=== PATIENT | male | born 1950 | race Caucasian/White ===

== ENCOUNTER 2016-12-15 00:29 | Emergency (ER) | payer SELFPAY ==
[~2016-12-15] VITALS: Ht 177.8 cm; Wt 100.0 kg
[2016-12-15 00:30] VITALS: BP 152/95; PULSE 97; RESP 18; TEMP 97.8; O2SAT 96
[2016-12-15 00:51] VITALS: BP 156/84; PULSE 91; RESP 18; TEMP 98.4; O2SAT 100
[2016-12-15 00:55] VITALS: O2SAT 97
[2016-12-15] MEDS ORDERED: MIRTA15 PO (01:04)
[2016-12-15] MEDS ORDERED: HYDR50TA94 PO (01:04)
[2016-12-15] MEDS ORDERED: SERO400T PO (01:04)
--- NOTE | 2016-12-15 01:11 | RADRPT ---
EXAM DATE/TIME: 12/15/2016 00:53 [facility] COMPARISON: No previous studies available for comparison. INDICATIONS : Chest pain. MEDICAL HISTORY : None. SURGICAL HISTORY : None. ENCOUNTER: Initial ACUITY: 1 day PAIN SCORE: 1/10 LOCATION: Bilateral chest FINDINGS: The lungs are clear without infiltrate, nodule, or mass. There is no appreciable pleural effusion fo r technique. Heart and mediastinum are unremarkable. CONCLUSION: No acute cardiopulmonary disease. Roberto Hsu MD on December 15, 2016 at 1:09 Board Certified Radiologist. This report was verified electronically.
--- NOTE | 2016-12-15 01:35 | PD ---
HPI Chief Complaint: Chest Pain Time Seen by Provider: 01:08 Travel History International Travel<30 days: No Contact w/Intl Traveler<30days: No Traveled to known affect area: No History of Present Illness HPI 66-year-old male presents with couple hour history of chest pain and shortness of breath that feels like an anxiety attack. He states that he feels better at rest and denies other concurrent complaints. He states that he is still having pain but it is better. Quality is pressure. Severity is improving. He states he had a stress test maybe 10 years ago. He states he took an aspirin prior to arrival. 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 PFSH Past Medical History Anxiety: Yes Psychiatric: Yes (PTSD) Tetanus Vaccination: < 5 Years Influenza Vaccination: No Past Surgical History Surgical History: No Previous Surgery Social History Alcohol Use: No (OCC) Tobacco Use: Yes Substance Use: No Allergies-Medications (Allergen,Severity, Reaction): Coded Allergies: No Known Allergies (Unverified , 12/15/16) Reported Meds & Prescriptions Reported Meds & Active Scripts Active Reported Mirtazapine 15 Mg Tab 15 Mg PO HS Hydroxyzine HCl 50 Mg Tab 50 Mg PO BID PRN Seroquel (Quetiapine Fumarate) 400 Mg Tab 600 Mg PO HS Review of Systems Except as stated in HPI: all other systems reviewed are Neg Physical Exam Narrative GENERAL: Well-nourished, well-developed patient. SKIN: Warm and dry. HEAD: Normocephalic and atraumatic. EYES: No injection or drainage. ENT: No nasal drainage noted. NECK: Supple, trachea midline. CARDIOVASCULAR: Regular rate and rhythm RESPIRATORY: Breath sounds equal bilaterally. No accessory muscle use. GASTROINTESTINAL: Abdomen soft, non-tender, nondistended. EXTREMITIES: No edema. NEUROLOGICAL: Awake and alert. Motor and sensory grossly within normal limits. Normal speech. Data Data Last Documented VS Vital Signs Date Time Temp Pulse Resp B/P Pulse Ox O2 Delivery O2 Flow Rate FiO2 12/15/16 00:55 91 18 100 Room Air 12/15/16 00:51 98.4 156/84 Orders Electrocardiogram (12/15/16 00:49) Complete Blood Count With Diff (12/15/16 00:49) Basic Metabolic Panel (Bmp) (12/15/16 00:49) Ckmb (Isoenzyme) Profile (12/15/16 00:49) Troponin I (12/15/16 00:49) Chest, Single Ap (12/15/16 00:49) Iv Access Insert/Monitor (12/15/16 00:49) Ecg Monitoring (12/15/16 00:49) Oxygen Administration (12/15/16 00:49) Oximetry (12/15/16 00:49) MDM Medical Decision Making Medical Screen Exam Complete: Yes Emergency Medical Condition: Yes Medical Record Reviewed: Yes (past history confirmed) Interpretation(s) EKG shows NSR, no ST elevation or depression, and no arrhythmias. No significant T-wave inversions. Last 24 hours Impressions Chest X-Ray 12/15/16 0049 Signed Impressions: Service Date/Time: Thursday, December 15, 2016 00:53 - CONCLUSION: No acute cardiopulmonary disease. Roberto Hsu MD Differential Diagnosis Anxiety, gastritis, musculoskeletal, cardiac Narrative Course Protocol was ordered prior to evaluating patient but only chest x-ray and EKG available. These show no acute findings. Advised patient that we will follow blood work and he will need observation in the hospital for cardiac clearance. He states he can't wait for the blood work that was sent to results and he wants to leave now. Nurse at bedside. 112- AMA: The risks of leaving against medical advice without further evaluation treatment were discussed with the patient. These risks include cardiac dysfunction, cardiac dysrhythmia, possible heart attack, possible stroke or . The patient indicated understanding of these risks and appeared to have the capacity to make this decision. Diagnosis Primary Impression: Chest pain Qualified Code: R07.9 - Chest pain, unspecified type Additional Impression: Left against medical advice Patient Instructions: General Instructions Departure Forms: Tests/Procedures Disposition: 07 AGAINST MEDICAL ADVICE Condition: Stable Lili Larsen MD December 15, 2016 01:35
--- NOTE | 2016-12-15 13:01 | EKG ---
Date Performed: 12/15/2016 Time Performed: 00:47:20 PTAGE: 66 years EKG: Sinus rhythm NORMAL ECG NO PREVIOUS TRACING DOCTOR: Sohail Adhikari Interpretating Date/Time 12/15/2016 13:00:11
== END 2016-12-15 01:26 | disposition left against medical advice (07) ==
LOC: NEPC 00:29
DX: R07.9 Chest pain, unspecified (principal); R06.02 Shortness of breath; Z72.0 Tobacco use; Z86.59 Personal history of other mental and behavioral disorders; Z53.29 Procedure and treatment not carried out because of patient's decision for other reasons
CPT/HCPCS: 71010; 93005; 99285

== ENCOUNTER 2017-01-14 13:35 | Emergency (ER) | payer MEDICARE ==
[~2017-01-14 13:35] MED LIST: HYDR50TA94 PO; MIRTA15 PO; SERO400T PO
[2017-01-14 13:37] VITALS: BP 136/86; PULSE 107; RESP 14; TEMP 97.8; O2SAT 96
--- NOTE | 2017-01-14 13:53 | PD ---
Physical Exam Date Seen by Provider: Jan 14, 2017 Time Seen by Provider: 13:50 Data Data Last Documented VS Vital Signs Date Time Temp Pulse Resp B/P Pulse Ox O2 Delivery O2 Flow Rate FiO2 01/14/17 13:37 97.8 107 14 136/86 96 MDM Supervised Visit with VIOLETTA: No Narrative Course 66 YO M with complaint of right ankle pain x 1hour. "There's a critter in my leg." Patient treated with a "tobacco poultice." Vitals reviewed. Seen in triage, awaiting bed placement. Deb Mcmanus Jan 14, 2017 13:52
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
== END 2017-01-14 18:26 | disposition left against medical advice (07) ==
LOC: NEPD 13:35
DX: M25.571 Pain in right ankle and joints of right foot (principal); F41.9 Anxiety disorder, unspecified; F43.10 Post-traumatic stress disorder, unspecified; Z53.21 Procedure and treatment not carried out due to patient leaving prior to being seen by health care provider; Z79.899 Other long term (current) drug therapy
CPT/HCPCS: 99281